=== PATIENT | female | born 1970 | race Caucasian/White ===

== ENCOUNTER 2019-01-04 20:27 | Emergency (ER) | payer OTHER ==
[~2019-01-04] VITALS: Ht 177.8 cm; Wt 108.9 kg
[2019-01-04] MEDS ORDERED: ZYPREXA2.5 MG PO (20:39)
[2019-01-04] MEDS ORDERED: LEXAPRO20 MG PO (20:39)
[2019-01-04] MEDS ORDERED: VITAMIN D-32000 UNIT (20:40)
== END 2019-01-05 00:14 | disposition home or self-care (01) ==
LOC: ER 20:27
DX: S16.1XXA Strain of muscle, fascia and tendon at neck level, initial encounter (principal); S00.33XA Contusion of nose, initial encounter; S00.11XA Contusion of right eyelid and periocular area, initial encounter; W16.212A Fall in (into) filled bathtub causing other injury, initial encounter; Y93.89 Activity, other specified; Y92.091 Bathroom in other non-institutional residence as the place of occurrence of the external cause; Y99.8 Other external cause status